=== PATIENT | male | born 1940 | race Caucasian/White ===

== ENCOUNTER → 2017-10-02 | Outpatient (CLI) | payer MEDICARE ==
[~2017-10-02] MED LIST: AMLO10TA2 PO; ESOM20CA31 PO; LISI40TA4 PO; TAMS0.4C32 PO; metoprolol er PO
== END | disposition home or self-care (01) ==
LOC: SHCH 10:10
PROVIDERS: ATTEND Internal Medicine Cardiovascular Disease
DX: I25.10 Atherosclerotic heart disease of native coronary artery without angina pectoris (principal)
CPT/HCPCS: 93306

== ENCOUNTER → 2017-10-18 | Outpatient (CLI) | payer MEDICARE | END | disposition home or self-care (01) | LOC: SHCH 10:40 | PROVIDERS: ATTEND Internal Medicine Cardiovascular Disease | DX: I73.9 Peripheral vascular disease, unspecified (principal) | CPT/HCPCS: 93925 ==

== ENCOUNTER → 2017-11-23 | Outpatient (CLI) | payer MEDICARE | END | disposition home or self-care (01) | LOC: SHCH 08:59 | PROVIDERS: ATTEND Internal Medicine Cardiovascular Disease | DX: I10 Essential (primary) hypertension (principal); I71.4 Abdominal aortic aneurysm, without rupture; I70.1 Atherosclerosis of renal artery; N28.1 Cyst of kidney, acquired | CPT/HCPCS: 93978 ==

== ENCOUNTER → 2017-12-04 | Outpatient (CLI) | payer MEDICARE ==
[~2017-12-04] MED LIST changes: +REGADENOSON 0.4 MG/5 ML PF SYG IVP SCH
== END | disposition home or self-care (01) ==
LOC: SHCH 09:04
PROVIDERS: ATTEND Internal Medicine Cardiovascular Disease
DX: R07.9 Chest pain, unspecified (principal); R06.02 Shortness of breath
CPT/HCPCS: 78452; 93017; 96374; A9500 ×2; J2785

== ENCOUNTER → 2018-12-25 | Outpatient (CLI) | payer MEDICARE ==
[~2018-12-25] MED LIST changes: -AMLO10TA2 PO; +AMLO10TA7 PO; -REGADENOSON 0.4 MG/5 ML PF SYG IVP SCH
== END | disposition home or self-care (01) ==
LOC: SHCH 11:02
PROVIDERS: ATTEND Internal Medicine Cardiovascular Disease
DX: I11.9 Hypertensive heart disease without heart failure (principal)
CPT/HCPCS: 93306

== ENCOUNTER 2022-02-20 10:21 | Inpatient (IN) | payer MEDICARE ==
[~2022-02-20] VITALS: Ht 167.6 cm; Wt 81.0 kg
[~2022-02-20 10:21] MED LIST changes: +AMLO-258 PO; -AMLO10TA7 PO; -LISI40TA4 PO; +LISI40TA9 PO
[2022-02-20 10:47] LABS: BASOPHILS % (AUTO) 0.6 % (0.0-5.0); EOSINOPHILS % (AUTO) 3.9 % (0.0-8.0); HEMATOCRIT 43.9 % (42-54); MEAN CORPUSCULAR HEMOGLOBIN 28.7 pg (27.0-33.0); MEAN CORPUSCULAR VOLUME 86.8 fL (79-99); MONOCYTES % (AUTO) 8.7 % (3.0-13.0); NEUTROPHILS % (AUTO) 67.4 % (40.0-77.0); PLATELET COUNT (AUTO) 203 K/uL (130-400); RED BLOOD CELL COUNT(AUTO) 5.06 MIL/uL (4.50-6.20); RED CELL DISTRIBUTION WIDTH 15.9 % (11.0-15.5)
[2022-02-20 10:56] LABS: POTASSIUM 4.5 mmol/L (3.5-5.1)
[2022-02-20 10:57] LABS: INR 0.95 (0.85-1.15); PROTHROMBIN TIME 10.4 SEC (9.6-11.6)
[2022-02-20 10:58] LABS: PARTIAL THROMBOPLASTIN TIME 27.9 SEC (26.3-35.5)
[2022-02-20] MEDS ORDERED: 0.9%NACL 1000ML 1,000 ML IV SCH (11:00)
[2022-02-20 11:01] LABS: ALBUMIN 3.6 g/dL (3.5-5.0); TOTAL PROTEIN, SERUM 7.1 g/dL (6.0-8.3)
[2022-02-20] MEDS ORDERED: AMIODARONE 150MG VIAL ONE (11:44)
[2022-02-20] MEDS ORDERED: AMIODARONE 150MG VIAL 150 MG in DEXTROSE 5%-WATER 100 ML IV SCH ×2 (12:00→14:30)
[2022-02-20] MEDS ORDERED: ONDANSETRON 4MG INJ IV PRN (13:00)
[2022-02-20] MEDS ORDERED: MAG/ALUM/SIMETH 30 ML UDCUP PO PRN (13:00)
[2022-02-20 14:30] LABS: APPEARANCE,URINE Clear (CLEAR); BILIRUBIN,URINE Negative (NEGATIVE); COLOR,URINE Yellow (YELLOW); GLUCOSE, URINE (UA) Negative (NEGATIVE); KETONES,URINE Negative (NEGATIVE); LEUKOCYTE ESTERASE ,URINE Negative (NEGATIVE); NITRATE,URINE Negative (NEGATIVE); OCCULT BLOOD,URINE Negative (NEGATIVE); PROTEIN,URINE Negative (NEGATIVE); UROBILINOGEN,URINE 0.2 mg/dL (0.2-1.0)
[2022-02-20] MEDS ORDERED: AMIODARONE 900MG VIAL 360 MG in DEXTROSE 5%-WATER 200 ML IV SCH (15:00)
[2022-02-20] MEDS ORDERED: AMIODARONE 900MG VIAL 540 MG in DEXTROSE 5%-WATER 300 ML IV SCH (15:00)
[2022-02-20] MEDS: AMIODARONE 900MG VIAL 360 MG in DEXTROSE 5%-WATER 200 ML IV SCH (15:29)
[2022-02-20] MEDS ORDERED: APIX5TAB PO (16:16)
[2022-02-20] MEDS ORDERED: AEC81 PO (16:16)
[2022-02-20] MEDS ORDERED: MULT-1203 PO (16:16)
[2022-02-20] MEDS ORDERED: ATOR40TA71 PO (16:16)
[2022-02-20 19:21] VITALS: BP 165/87
[2022-02-20] MEDS: METOPROLOL TARTRATE 25 MG TAB PO SCH (21:03)
[2022-02-20] MEDS: FAMOTIDINE 20MG TAB PO SCH (21:03)
[2022-02-20] MEDS: AMIODARONE 900MG VIAL 540 MG in DEXTROSE 5%-WATER 300 ML IV SCH (21:05)
[2022-02-20] MEDS: ACETAMINOPHEN 325 MG TAB PO PRN (21:08)
[2022-02-20] MEDS ORDERED: MORPHINE 2 MG SYG IVP PRN (22:30)
[2022-02-20] MEDS: NITROGLYCERIN 1GM OINT 1 INCH/1GM TD SCH (22:30)
[2022-02-20] MEDS ORDERED: NITROGLYCERIN 1GM OINT 1 INCH/1GM TD ONE (22:30)
[2022-02-20] MEDS ORDERED: PHARMACY COMMUNICATION MISC SCH (23:30)
[2022-02-21] VITALS (7 sets, daily range): BP systolic 137–166; BP diastolic 64–76
[2022-02-21] MEDS ORDERED: HEPARIN 5,000 UNIT VIAL IV ONE (01:00)
[2022-02-21] MEDS ORDERED: HEPARIN 5,000 UNIT VIAL SQ PRN (01:00)
[2022-02-21] MEDS: HEPARIN 25,000 UNITS/250ML D5W 250 ML IV SCH ×2 (01:39→19:17)
[2022-02-21] MEDS: NITROGLYCERIN 1GM OINT 1 INCH/1GM TD SCH ×3 (06:26→22:30)
[2022-02-21 08:14] LABS: BASOPHILS % (AUTO) 0.5 % (0.0-5.0); EOSINOPHILS % (AUTO) 1.6 % (0.0-8.0); HEMATOCRIT 43.7 % (42-54); LYMPHOCYTES % (AUTO) 11.8 % (21.0-51.0); MEAN CORPUSCULAR HGB CONC 33.4 g/dL (32.0-36.0); MEAN CORPUSCULAR VOLUME 86.9 fL (79-99); MONOCYTES % (AUTO) 11.7 % (3.0-13.0); NEUTROPHILS % (AUTO) 73.8 % (40.0-77.0); PLATELET COUNT (AUTO) 181 K/uL (130-400); RED BLOOD CELL COUNT(AUTO) 5.03 MIL/uL (4.50-6.20); RED CELL DISTRIBUTION WIDTH 16.2 % (11.0-15.5); WHITE BLOOD COUNT (AUTO) 12.7 K/uL (4.8-10.8)
[2022-02-21] MEDS: LISINOPRIL 40 MG TABLET PO SCH (08:38)
[2022-02-21] MEDS: METOPROLOL TARTRATE 25 MG TAB PO SCH ×2 (08:38→20:34)
[2022-02-21] MEDS: TAMSULOSIN HCL 0.4 MG CAP.ER.24H PO SCH (08:38)
[2022-02-21] MEDS: MULTIVITAMIN TABLET PO SCH (08:38)
[2022-02-21] MEDS: FAMOTIDINE 20MG TAB PO SCH ×2 (08:39→20:33)
[2022-02-21 08:47] LABS: ALBUMIN 3.1 g/dL (3.5-5.0); TOTAL PROTEIN, SERUM 6.4 g/dL (6.0-8.3)
[2022-02-21] MEDS ORDERED: ENOXAPARIN SODIUM 30 MG/0.3 ML SQ SCH (09:00)
[2022-02-21 09:10] LABS: POTASSIUM 4.3 mmol/L (3.5-5.1)
[2022-02-21] MEDS: ACETAMINOPHEN 325 MG TAB PO PRN (09:51)
[2022-02-21] MEDS: ATORVASTATIN 40 MG TABLET PO SCH (20:33)
[2022-02-21] MEDS: ASPIRIN 81 MG EC TAB PO SCH (20:34)
[2022-02-22] VITALS (8 sets, daily range): BP systolic 115–166; BP diastolic 64–85
[2022-02-22 02:19] LABS: MEAN CORPUSCULAR HGB CONC 33.5 g/dL (32.0-36.0); MEAN CORPUSCULAR VOLUME 86.4 fL (79-99); RED BLOOD CELL COUNT(AUTO) 4.28 MIL/uL (4.50-6.20); RED CELL DISTRIBUTION WIDTH 15.9 % (11.0-15.5); WHITE BLOOD COUNT (AUTO) 9.2 K/uL (4.8-10.8)
[2022-02-22 02:34] LABS: POTASSIUM 4.2 mmol/L (3.5-5.1)
[2022-02-22] MEDS: NITROGLYCERIN 1GM OINT 1 INCH/1GM TD SCH ×3 (06:09→22:05)
[2022-02-22] MEDS: METOPROLOL TARTRATE 25 MG TAB PO SCH ×2 (08:29→20:37)
[2022-02-22] MEDS: TAMSULOSIN HCL 0.4 MG CAP.ER.24H PO SCH (08:32)
[2022-02-22] MEDS: MULTIVITAMIN TABLET PO SCH (08:32)
[2022-02-22] MEDS: LISINOPRIL 40 MG TABLET PO SCH (08:33)
[2022-02-22] MEDS: FAMOTIDINE 20MG TAB PO SCH ×2 (08:33→20:37)
[2022-02-22] MEDS: AMIODARONE 900MG VIAL 540 MG in DEXTROSE 5%-WATER 300 ML IV SCH (08:48)
[2022-02-22] MEDS: AMIODARONE 900MG VIAL 360 MG in DEXTROSE 5%-WATER 200 ML IV SCH (08:48)
[2022-02-22] MEDS: AMIODARONE 200 MG TABLET PO SCH (10:04)
[2022-02-22] MEDS ORDERED: REGADENOSON 0.4 MG/5 ML PF SYG IVP SCH (10:30)
[2022-02-22] MEDS: ASPIRIN 81 MG EC TAB PO SCH (20:37)
[2022-02-22] MEDS: ATORVASTATIN 40 MG TABLET PO SCH (20:37)
[2022-02-23 00:12] VITALS: BP 143/74
[2022-02-23 03:12] VITALS: BP 158/73
[2022-02-23] MEDS: HEPARIN 25,000 UNITS/250ML D5W 250 ML IV SCH (04:49)
[2022-02-23] MEDS: NITROGLYCERIN 1GM OINT 1 INCH/1GM TD SCH (06:14)
[2022-02-23 07:00] VITALS: BP 179/80
[2022-02-23] MEDS ORDERED: AMIO200T44 PO (07:50)
[2022-02-23] MEDS ORDERED: METO25 PO (07:50)
[2022-02-23 08:21] VITALS: BP 179/80
[2022-02-23] MEDS: FAMOTIDINE 20MG TAB PO SCH (08:24)
[2022-02-23] MEDS: MULTIVITAMIN TABLET PO SCH (08:24)
[2022-02-23] MEDS: AMIODARONE 200 MG TABLET PO SCH (08:24)
[2022-02-23] MEDS: LISINOPRIL 40 MG TABLET PO SCH (08:24)
[2022-02-23] MEDS: TAMSULOSIN HCL 0.4 MG CAP.ER.24H PO SCH (08:24)
[2022-02-23] MEDS: METOPROLOL TARTRATE 25 MG TAB PO SCH (08:25)
== END 2022-02-23 10:15 | disposition home or self-care (01) | DRG 310 ==
LOC: EDH 10:21 → EDHIP 12:54 → OBSVTOIN 12:54 → 2DH 20:07
PROVIDERS: ADMIT Hospitalist; ATTEND Hospitalist
PROC: 4A02XM4 Measurement of Cardiac Total Activity, External Approach (ICD-10-PCS; principal; 2022-02-21)
PROC: 3E073KZ Introduction of Other Diagnostic Substance into Coronary Artery, Percutaneous Approach (ICD-10-PCS; 2022-02-21)
DX: I48.91 Unspecified atrial fibrillation (principal); Z79.01 Long term (current) use of anticoagulants; I48.92 Unspecified atrial flutter; I10 Essential (primary) hypertension; E78.5 Hyperlipidemia, unspecified; K21.9 Gastro-esophageal reflux disease without esophagitis; Z82.0 Family history of epilepsy and other diseases of the nervous system; Z82.5 Family history of asthma and other chronic lower respiratory diseases; Z82.49 Family history of ischemic heart disease and other diseases of the circulatory system; Z82.3 Family history of stroke; Z83.3 Family history of diabetes mellitus; Z90.49 Acquired absence of other specified parts of digestive tract; Z95.5 Presence of coronary angioplasty implant and graft; I44.7 Left bundle-branch block, unspecified; I25.10 Atherosclerotic heart disease of native coronary artery without angina pectoris; E78.00 Pure hypercholesterolemia, unspecified; R00.0 Tachycardia, unspecified; R77.8 Other specified abnormalities of plasma proteins
CPT/HCPCS: 36415; 71045; 78452; 80048; 80053; 81003; 84484; 85025; 85027; 85610; 85730; 93005; 93017; 96374; 99291; A9500; G0378; J0282; J1644; J2785; J7030; J7060

== ENCOUNTER → 2022-04-27 | Outpatient (CLI) | payer MEDICARE ==
[~2022-04-27] MED LIST changes: +AEC81 PO; +AMIO200T44 PO; -AMLO-258 PO; +APIX5TAB PO; +ATOR40TA71 PO; +METO25 PO; +MULT-1203 PO; -metoprolol er PO
== END | disposition home or self-care (01) ==
LOC: SHCH 14:00
PROVIDERS: ATTEND Internal Medicine Cardiovascular Disease
DX: I48.0 Paroxysmal atrial fibrillation (principal)
CPT/HCPCS: 93306

== ENCOUNTER → 2022-06-13 | Outpatient (CLI) | payer MEDICARE ==
[~2022-06-13] MED LIST changes: +IOHEXOL 350 MG/ML 100ML INFUS..BTL IV ONE
== END | disposition home or self-care (01) ==
LOC: RAH 10:39
PROVIDERS: ATTEND Internal Medicine Cardiovascular Disease
DX: I48.0 Paroxysmal atrial fibrillation (principal); I51.7 Cardiomegaly
CPT/HCPCS: 71275; Q9967

== ENCOUNTER 2022-06-27 05:50 | Day surgery (SDC) | payer MEDICARE ==
[2022-06-21 11:38] LABS: BASOPHILS % (AUTO) 0.6 % (0.0-5.0); EOSINOPHILS % (AUTO) 4.7 % (0.0-8.0); HEMATOCRIT 44.8 % (42-54); LYMPHOCYTES % (AUTO) 26.5 % (21.0-51.0); MEAN CORPUSCULAR HEMOGLOBIN 28.6 pg (27.0-33.0); MEAN CORPUSCULAR HGB CONC 32.6 g/dL (32.0-36.0); MEAN CORPUSCULAR VOLUME 87.7 fL (79-99); MONOCYTES % (AUTO) 9.2 % (3.0-13.0); NEUTROPHILS % (AUTO) 58.7 % (40.0-77.0); PLATELET COUNT (AUTO) 203 K/uL (130-400); RED BLOOD CELL COUNT(AUTO) 5.11 MIL/uL (4.50-6.20); WHITE BLOOD COUNT (AUTO) 6.6 K/uL (4.8-10.8)
[2022-06-21 11:48] LABS: CREATININE 0.9 mg/dL (0.5-1.5); POTASSIUM 4.3 mmol/L (3.5-5.1)
[2022-06-21 11:51] LABS: INR 0.99 (0.85-1.15); PROTHROMBIN TIME 10.8 SEC (9.6-11.6)
[2022-06-21 11:52] LABS: PARTIAL THROMBOPLASTIN TIME 30.8 SEC (26.3-35.5)
[2022-06-26 09:25] VITALS: BP 198/68
[2022-06-27] VITALS (13 sets, daily range): BP systolic 147–165; BP diastolic 52–62
[~2022-06-27] VITALS: Ht 167.6 cm; Wt 84.6 kg
[~2022-06-27 05:50] MED LIST changes: -AMIO200T44 PO; +CLON0.1T PO; -IOHEXOL 350 MG/ML 100ML INFUS..BTL IV ONE; -METO25 PO; -MULT-1203 PO; +MULT-1258 PO; +VITAMIN B12 PO
[2022-06-27] MEDS ORDERED: 0.9%NACL 1000ML 1,000 ML IV ONE (06:18)
[2022-06-27] MEDS ORDERED: HEPARIN 10,000 UNIT/10ML (1,000 UNIT/ML) VIAL ONE (07:17)
[2022-06-27] MEDS ORDERED: LIDOCAINE HCL 1% 20 ML VIAL ONE ×2 (07:17→07:29)
[2022-06-27] MEDS ORDERED: PHENYLEPHRINE HCL 10 MG/ML 1ML VIAL IV ONE (08:19)
[2022-06-27] MEDS ORDERED: GLYCOPYRROLATE 1 MG/5 ML SYRINGE ONE (08:25)
[2022-06-27] MEDS ORDERED: NEOSTIGMINE 5MG/5ML SYR IV ONE (08:49)
[2022-06-27] MEDS ORDERED: SUGAMMADEX SODIUM 200 MG/2 ML VIAL IV ONE (08:52)
[2022-06-27] MEDS ORDERED: HYDRALAZINE 20MG/ML VIAL ONE (08:58)
== END 2022-06-27 10:35 | disposition home or self-care (01) ==
LOC: DAH 05:50
PROVIDERS: ATTEND Internal Medicine Cardiovascular Disease
DX: I48.0 Paroxysmal atrial fibrillation (principal); Z20.822 Contact with and (suspected) exposure to COVID-19; I48.4 Atypical atrial flutter; I10 Essential (primary) hypertension; I25.10 Atherosclerotic heart disease of native coronary artery without angina pectoris; Z79.01 Long term (current) use of anticoagulants; Z79.899 Other long term (current) drug therapy; Z79.82 Long term (current) use of aspirin; Z98.890 Other specified postprocedural states; Z88.2 Allergy status to sulfonamides
CPT/HCPCS: 80048; 85025; 85610; 85730; 87426; 36415; 93005 ×2; 93656; 92960; A4344; C1894 ×3; C1893; A4215 ×2; C1731; A4649 ×2; J3490; J2710; J7030; J0360; J1644 ×2; J2370; A4222; A4221; A4663; A4216; A4606; A4223 ×3

== ENCOUNTER 2022-11-07 07:19 | Observation (INO) | payer MEDICARE ==
[2022-11-03 14:05] VITALS: BP 154/91
[2022-11-03 14:15] LABS: BASOPHILS % (AUTO) 0.5 % (0.0-5.0); EOSINOPHILS % (AUTO) 5.1 % (0.0-8.0); HEMATOCRIT 44.2 % (42-54); LYMPHOCYTES % (AUTO) 28.7 % (21.0-51.0); MEAN CORPUSCULAR HEMOGLOBIN 27.9 pg (27.0-33.0); MEAN CORPUSCULAR HGB CONC 32.1 g/dL (32.0-36.0); MEAN CORPUSCULAR VOLUME 86.8 fL (79-99); MONOCYTES % (AUTO) 10.7 % (3.0-13.0); NEUTROPHILS % (AUTO) 54.3 % (40.0-77.0); PLATELET COUNT (AUTO) 278 K/uL (130-400); RED BLOOD CELL COUNT(AUTO) 5.09 MIL/uL (4.50-6.20); RED CELL DISTRIBUTION WIDTH 15.3 % (11.0-15.5); WHITE BLOOD COUNT (AUTO) 6.1 K/uL (4.8-10.8)
[2022-11-03 14:30] LABS: INR 0.98 (0.85-1.15); PROTHROMBIN TIME 10.7 SEC (9.6-11.6)
[2022-11-07] VITALS (17 sets, daily range): BP systolic 142–162; BP diastolic 63–104
[~2022-11-07] VITALS: Ht 167.6 cm; Wt 85.4 kg
[~2022-11-07 07:19] MED LIST changes: +ACET-2893 PO; +CYCL5TAB PO; +METO-391 PO
[2022-11-07] MEDS ORDERED: 0.9%NACL 1000ML 1,000 ML IV ONE (07:37)
[2022-11-07] MEDS ORDERED: LIDOCAINE HCL 1% MDV 50ML VIAL ONE (10:28)
[2022-11-07] MEDS ORDERED: HEPARIN 10,000 UNIT/10ML (1,000 UNIT/ML) VIAL ONE ×3 (10:31→17:06)
[2022-11-07] MEDS ORDERED: METOPROLOL TARTRATE 1 MG/ML 5ML VIAL IV ONE (11:32)
[2022-11-07] MEDS ORDERED: BENZOCAINE 20% 57 GM SPRAY ONE (12:13)
[2022-11-07] MEDS ORDERED: ROCURONIUM 10MG/1ML SYR 10 MG/ML ML ONE (13:31)
[2022-11-07] MEDS ORDERED: NITROGLYCERIN 50MG VIAL ONE (15:05)
[2022-11-07] MEDS ORDERED: ATROPINE 1MG SYG IVP ONE (15:12)
[2022-11-07 16:18] LABS: ABG BASE EXCESS -0.7 mmol/L (-2.0-3.0); ABG OXYGEN SATURATION 99.3 % (95.0-99.0); ABG PCO2 45 mmHg (35-48)
[2022-11-07] MEDS ORDERED: PHENYLEPHRINE HCL 10 MG/ML 5ML VIAL IV ONE (16:30)
[2022-11-07] MEDS ORDERED: PHENYLEPHRINE HCL 10 MG/ML 1ML VIAL IV ONE (16:32)
[2022-11-07] MEDS ORDERED: PROTAMINE SULFATE 10 MG/ML 25ML VIAL IV ONE (17:29)
[2022-11-07] MEDS ORDERED: CYCLOBENZAPRINE HCL 10 MG TABLET PO PRN (18:00)
[2022-11-07] MEDS ORDERED: PANTOPRAZOLE 40 MG TAB DR PO SCH (18:00)
[2022-11-07] MEDS ORDERED: CLONIDINE HCL 0.1 MG TABLET PO PRN (18:00)
[2022-11-07] MEDS ORDERED: ATORVASTATIN 40 MG TABLET PO SCH (21:00)
[2022-11-07] MEDS ORDERED: ASPIRIN 81 MG EC TAB PO SCH (21:00)
[2022-11-07] MEDS ORDERED: ENOXAPARIN SODIUM 80 MG/0.8 ML SQ ONE (22:08)
[2022-11-07] MEDS: ACETAMINOPHEN 325 MG TAB PO SCH (22:10)
[2022-11-07] MEDS: SUCRALFATE 1 GM TABLET PO SCH ×2 (22:11→22:33)
[2022-11-08 00:12] VITALS: BP 170/87
[2022-11-08] MEDS ORDERED: ENOXAPARIN SODIUM 80 MG/0.8 ML SQ ONE (01:00)
[2022-11-08 03:12] VITALS: BP 116/52
[2022-11-08] MEDS: SUCRALFATE 1 GM TABLET PO SCH ×2 (06:07→09:29)
[2022-11-08 08:00] VITALS: BP 136/73
[2022-11-08] MEDS ORDERED: LISINOPRIL 40 MG TABLET PO SCH (09:00)
[2022-11-08] MEDS ORDERED: PANTOPRAZOLE 40 MG TAB DR PO SCH (09:00)
[2022-11-08] MEDS ORDERED: NON-FORMULARY MEDICATION 1 EACH (Esomeprazole Magnesium (Nexium) 20 MG) PO SCH (09:00)
[2022-11-08] MEDS ORDERED: CYANOCOBALAMIN (VITAMIN B-12) 1,000 MCG TABLET PO SCH (09:00)
[2022-11-08] MEDS ORDERED: MULTIVITAMIN WITH MINERALS TABLET PO SCH (09:00)
[2022-11-08] MEDS: ACETAMINOPHEN 325 MG TAB PO SCH (09:00)
[2022-11-08] MEDS ORDERED: APIXABAN 5 MG TABLET PO SCH (09:00)
[2022-11-08] MEDS ORDERED: TAMSULOSIN HCL 0.4 MG CAP.ER.24H PO SCH (09:00)
[2022-11-08] MEDS ORDERED: SUCRALFATE 1 GM TABLET PO SCH (10:35)
[2022-11-08] MEDS ORDERED: SUCR1ORA15 PO (10:42)
[2022-11-08 12:50] VITALS: BP 126/69
[2022-11-08] MEDS ORDERED: METOPROLOL SUCCINATE 50 MG TAB.SR.24H PO SCH (21:00)
[2022-11-10] MEDS ORDERED: HYDR-4060 PO (10:44)
[2022-11-11] MEDS ORDERED: AMIO200T68 PO (07:49)
== END 2022-11-08 13:35 | disposition home or self-care (01) ==
LOC: DAH 07:19 → DAHIP 07:20 → 2DH 20:06
PROVIDERS: ADMIT Internal Medicine Cardiovascular Disease; ATTEND Internal Medicine Cardiovascular Disease
DX: I48.91 Unspecified atrial fibrillation (principal); Z20.822 Contact with and (suspected) exposure to COVID-19; I25.10 Atherosclerotic heart disease of native coronary artery without angina pectoris; E78.5 Hyperlipidemia, unspecified; N40.0 Benign prostatic hyperplasia without lower urinary tract symptoms; E66.9 Obesity, unspecified; M10.9 Gout, unspecified; Z79.899 Other long term (current) drug therapy
CPT/HCPCS: 80048; 85025; 85610; 85730; 87426; 36415; 93005 ×3; 93622; 93655; 93656; 96372; 82435; 82947; 84484; 84132; 84295; 82803; 85347 ×9; 85018; 83605; 93308; 93312; C1894 ×3; A4344; C1893; A4215 ×2; C1731; A4649 ×2; C1732; C1730; G0378 ×20; J3490 ×3; J7030; J2720; J1644 ×5; J1650; J2370 ×2; A4223; A4222; A4221; A4663; 93657; J0461

== ENCOUNTER 2022-11-14 09:11 | Emergency (ER) | payer MEDICARE ==
[~2022-11-14] VITALS: Ht 167.6 cm; Wt 81.6 kg
[~2022-11-14 09:11] MED LIST changes: -ACET-2893 PO; +AMIO200T68 PO; -CLON0.1T PO; -CYCL5TAB PO; +SUCR1ORA15 PO
[2022-11-14] MEDS ORDERED: DEXAMETHASONE SOD PHOSPHATE 4 MG/ML 1ML VIAL IV ONE (09:30)
[2022-11-14 09:36] LABS: BASOPHILS % (AUTO) 0.3 % (0.0-5.0); EOSINOPHILS % (AUTO) 1.3 % (0.0-8.0); HEMATOCRIT 33.4 % (42-54); LYMPHOCYTES % (AUTO) 11.4 % (21.0-51.0); MEAN CORPUSCULAR HEMOGLOBIN 27.7 pg (27.0-33.0); MEAN CORPUSCULAR HGB CONC 32.6 g/dL (32.0-36.0); MONOCYTES % (AUTO) 10.9 % (3.0-13.0); NEUTROPHILS % (AUTO) 75.5 % (40.0-77.0); PLATELET COUNT (AUTO) 309 K/uL (130-400); RED BLOOD CELL COUNT(AUTO) 3.93 MIL/uL (4.50-6.20); RED CELL DISTRIBUTION WIDTH 15.6 % (11.0-15.5); WHITE BLOOD COUNT (AUTO) 11.8 K/uL (4.8-10.8)
[2022-11-14 09:44] LABS: POTASSIUM 4.4 mmol/L (3.5-5.1)
[2022-11-14 09:49] LABS: ALBUMIN 2.8 g/dL (3.5-5.0); TOTAL PROTEIN, SERUM 7.3 g/dL (6.0-8.3)
[2022-11-14 10:01] LABS: B-TYPE NATRIURETIC PEPTIDE 299 pg/mL (0-100)
[2022-11-14] MEDS ORDERED: 0.9% NACL 500ML IV.SOLN 500 ML IV ONE (10:30)
[2022-11-14] MEDS ORDERED: FENTANYL CITRATE PF 50 MCG/1 ML 2ML VIAL IVP ONE (10:30)
[2022-11-14] MEDS ORDERED: MIDAZOLAM HCL 1 MG/ML 2ML VIAL IVP ONE (10:30)
[2022-11-14 13:15] VITALS: BP 140/80
[2022-11-14] MEDS ORDERED: METH4TAB3 PO (14:01)
== END 2022-11-14 14:06 | disposition home or self-care (01) ==
LOC: EDH 09:11
DX: I48.92 Unspecified atrial flutter (principal); I10 Essential (primary) hypertension; E78.00 Pure hypercholesterolemia, unspecified; Z88.2 Allergy status to sulfonamides; Z79.899 Other long term (current) drug therapy; Z90.89 Acquired absence of other organs
CPT/HCPCS: 99291; 92960; 96374; 71045; 96375; 83735; 84484 ×2; 80053; 83880; 85025; 36415; 99152; 93005 ×3; J1100; J7040; J3010; J2250

== ENCOUNTER → 2023-01-25 | Outpatient (CLI) | payer MEDICARE ==
[~2023-01-25] MED LIST changes: +METH4TAB3 PO
[2023-01-25 16:19] LABS: BASOPHILS % (AUTO) 0.6 % (0.0-5.0); EOSINOPHILS % (AUTO) 4.1 % (0.0-8.0); LYMPHOCYTES % (AUTO) 23.6 % (21.0-51.0); MEAN CORPUSCULAR HEMOGLOBIN 27.5 pg (27.0-33.0); MONOCYTES % (AUTO) 10.8 % (3.0-13.0); NEUTROPHILS % (AUTO) 60.4 % (40.0-77.0); PLATELET COUNT (AUTO) 220 K/uL (130-400); RED BLOOD CELL COUNT(AUTO) 4.77 MIL/uL (4.50-6.20); RED CELL DISTRIBUTION WIDTH 16.9 % (11.0-15.5); WHITE BLOOD COUNT (AUTO) 6.6 K/uL (4.8-10.8)
[2023-01-25 16:44] LABS: ALBUMIN 3.6 g/dL (3.5-5.0); THYROID STIMULATING HORMONE 1.64 uIU/mL (0.36-3.74); TOTAL PROTEIN, SERUM 6.8 g/dL (6.0-8.3)
== END | disposition home or self-care (01) ==
LOC: LAB 15:13
PROVIDERS: ATTEND Internal Medicine Cardiovascular Disease
DX: I48.0 Paroxysmal atrial fibrillation (principal)
CPT/HCPCS: 36415; 80053; 84443; 85025

== ENCOUNTER → 2023-06-14 | Outpatient (CLI) | payer MEDICARE ==
[2023-06-14 13:00] LABS: ALBUMIN 3.6 g/dL (3.5-5.0); BILIRUBIN,TOTAL 0.6 mg/dL (0.2-1.0); CREATININE 0.9 mg/dL (0.5-1.5); POTASSIUM 4.5 mmol/L (3.5-5.1); TOTAL PROTEIN, SERUM 6.8 g/dL (6.0-8.3)
== END | disposition home or self-care (01) ==
LOC: LAB 08:06
PROVIDERS: ATTEND Internal Medicine Cardiovascular Disease
DX: E78.5 Hyperlipidemia, unspecified (principal)
CPT/HCPCS: 36415; 80053; 80061

== ENCOUNTER → 2024-01-08 | Outpatient (CLI) | payer MEDICARE ==
[~2024-01-08] VITALS: Ht 167.6 cm; Wt 87.2 kg
[~2024-01-08] MED LIST changes: +ALLO100T PO; +AMLO-257 PO; +CLON0.1T PO; +DRON400T7 PO; +ESOM20CA51 PO; +METO-408 PO
[2024-01-08 11:03] LABS: BASOPHILS # (AUTO) 0.03 K/uL (0.00-0.20); BASOPHILS % (AUTO) 0.4 % (0.0-5.0); EOSINOPHILS % (AUTO) 5.9 % (0.0-8.0); HEMATOCRIT 47.6 % (42-54); IMMATURE GRANULOCYTE ABSOLUTE 0.03 K/uL (0-1); LYMPHOCYTES # (AUTO) 1.6 K/uL (1.0-4.8); LYMPHOCYTES % (AUTO) 23.3 % (21.0-51.0); MEAN CORPUSCULAR HEMOGLOBIN 29.3 pg (27.0-33.0); MEAN CORPUSCULAR HGB CONC 32.8 g/dL (32.0-36.0); MEAN CORPUSCULAR VOLUME 89.3 fL (79-99); MONOCYTES # (AUTO) 0.8 K/uL (0.1-1.0); MONOCYTES % (AUTO) 11.4 % (3.0-13.0); NEUTROPHILS # (AUTO) 3.9 K/uL (1.8-7.7); NEUTROPHILS % (AUTO) 58.6 % (40.0-77.0); PLATELET COUNT (AUTO) 210 K/uL (130-400); RED BLOOD CELL COUNT(AUTO) 5.33 MIL/uL (4.50-6.20); RED CELL DISTRIBUTION WIDTH 16.3 % (11.0-15.5); WHITE BLOOD COUNT (AUTO) 6.7 K/uL (4.8-10.8)
[2024-01-08 11:05] LABS: CREATININE 0.9 mg/dL (0.5-1.3); POTASSIUM 4.3 mmol/L (3.5-5.1)
[2024-01-08 11:10] LABS: INR <= 0.93 (0.85-1.15)
[2024-01-08 11:11] LABS: PARTIAL THROMBOPLASTIN TIME 30.1 SEC (26.3-35.5)
[2024-01-08 11:23] VITALS: BP 157/72; PULSE 68; RESP 19
== END | disposition home or self-care (01) ==
LOC: EDSTATUS 10:00 → DAH 10:00
PROVIDERS: ATTEND Internal Medicine Cardiovascular Disease
DX: Z01.818 Encounter for other preprocedural examination (principal); I48.4 Atypical atrial flutter; Z79.01 Long term (current) use of anticoagulants; Z88.2 Allergy status to sulfonamides
CPT/HCPCS: 36415; 80048; 85025; 85610; 85730; 93005

== ENCOUNTER 2024-02-21 05:57 | Observation (INO) | payer MEDICARE ==
[2024-02-19 12:29] VITALS: BP 180/62; PULSE 52; RESP 16
[2024-02-19 12:37] LABS: BASOPHILS # (AUTO) 0.04 K/uL (0.00-0.20); BASOPHILS % (AUTO) 0.6 % (0.0-5.0); EOSINOPHILS # (AUTO) 0.44 K/uL (0.00-0.70); EOSINOPHILS % (AUTO) 6.7 % (0.0-8.0); HEMATOCRIT 44.8 % (42-54); IMMATURE GRANULOCYTE ABSOLUTE 0.04 K/uL (0-1); LYMPHOCYTES % (AUTO) 29.7 % (21.0-51.0); MEAN CORPUSCULAR HEMOGLOBIN 28.7 pg (27.0-33.0); MEAN CORPUSCULAR HGB CONC 33.3 g/dL (32.0-36.0); MEAN CORPUSCULAR VOLUME 86.2 fL (79-99); MONOCYTES # (AUTO) 0.7 K/uL (0.1-1.0); MONOCYTES % (AUTO) 10.5 % (3.0-13.0); NEUTROPHILS # (AUTO) 3.4 K/uL (1.8-7.7); NEUTROPHILS % (AUTO) 51.9 % (40.0-77.0); PLATELET COUNT (AUTO) 222 K/uL (130-400); RED CELL DISTRIBUTION WIDTH 15.8 % (11.0-15.5); WHITE BLOOD COUNT (AUTO) 6.6 K/uL (4.8-10.8)
[2024-02-19 12:49] LABS: INR 1.12 (0.85-1.15)
[2024-02-19 12:50] LABS: CREATININE 0.9 mg/dL (0.5-1.3); PARTIAL THROMBOPLASTIN TIME 29.3 SEC (26.3-35.5); POTASSIUM 4.6 mmol/L (3.5-5.1)
[~2024-02-21] VITALS: Ht 170.2 cm; Wt 88.0 kg
[2024-02-21] VITALS (23 sets, daily range): BP systolic 124–163; BP diastolic 57–77; PULSE 54–75; RESP 13–18; O2SAT 96–98
[~2024-02-21 05:57] MED LIST changes: -ALLO100T PO; -AMIO200T68 PO; -ATOR40TA71 PO; -ESOM20CA31 PO; -METH4TAB3 PO; -METO-391 PO; -SUCR1ORA15 PO
[2024-02-21] MEDS ORDERED: ROCURONIUM BROMIDE 10MG/1ML 5ML VL ONE (06:49)
[2024-02-21] MEDS ORDERED: MIDAZOLAM HCL 1 MG/ML 2ML VIAL ONE (06:49)
[2024-02-21] MEDS ORDERED: FENTANYL CITRATE PF 50 MCG/1 ML 2ML VIAL ONE ×2 (06:49→07:03)
[2024-02-21] MEDS ORDERED: PROPOFOL 10 MG/ML 20ML VIAL IV ONE (06:49)
[2024-02-21] MEDS ORDERED: ONDANSETRON 4MG INJ ONE (07:03)
[2024-02-21] MEDS: 0.9%NACL 1000ML 1,000 ML IV ONE (07:09)
[2024-02-21] MEDS ORDERED: LIDOCAINE HCL 400MG/20ML VIAL ONE (07:47)
[2024-02-21] MEDS ORDERED: HEPARIN 10,000 UNIT/10ML (1,000 UNIT/ML) VIAL ONE ×3 (07:49→10:53)
[2024-02-21] MEDS ORDERED: PHENYLEPHRINE HCL 10 MG/ML 1ML VIAL IV ONE (08:44)
[2024-02-21] MEDS ORDERED: EPHEDRINE SULFATE 50 MG/ML AMPULE ONE (08:53)
[2024-02-21] MEDS ORDERED: PROTAMINE SULFATE 10 MG/ML 5 ML VIAL ONE (13:48)
[2024-02-21] MEDS: SUCRALFATE 1 GM/10 ML PO SCH (19:56)
[2024-02-21] MEDS: PANTOPRAZOLE 40 MG TAB DR PO ONE (19:57)
[2024-02-21] MEDS: DRONEDARONE HYDROCHLORIDE 400 MG TABLET PO SCH (20:34)
[2024-02-21] MEDS: AMLODIPINE 5 MG TAB PO SCH (20:34)
[2024-02-21] MEDS: CLONIDINE HCL 0.1 MG TABLET PO SCH (20:34)
[2024-02-21] MEDS: ASPIRIN 81 MG EC TAB PO SCH (20:34)
[2024-02-21] MEDS: APIXABAN 5 MG TABLET PO SCH (20:35)
[2024-02-22 03:08] VITALS: BP 143/70; PULSE 66; RESP 16
[2024-02-22 07:15] VITALS: O2SAT 95
[2024-02-22] MEDS ORDERED: SUCR1TAB2 PO (08:34)
[2024-02-22 08:43] VITALS: BP 154/69; PULSE 75; RESP 16
[2024-02-22] MEDS: TAMSULOSIN HCL 0.4 MG CAP.ER.24H PO SCH (09:53)
[2024-02-22 09:54] VITALS: BP 154/79; PULSE 89
[2024-02-22] MEDS: PANTOPRAZOLE 40 MG TAB DR PO SCH (09:54)
[2024-02-22] MEDS: LISINOPRIL 40 MG TABLET PO SCH (09:54)
== END 2024-02-22 11:10 | disposition home or self-care (01) ==
LOC: DAH 05:57 → DAHIP 05:58 → DAH 05:58 → 2AH 15:50
PROVIDERS: ADMIT Internal Medicine Cardiovascular Disease; ATTEND Internal Medicine Cardiovascular Disease
DX: I48.4 Atypical atrial flutter (principal); I47.19 Other supraventricular tachycardia; I25.10 Atherosclerotic heart disease of native coronary artery without angina pectoris; I73.9 Peripheral vascular disease, unspecified; I10 Essential (primary) hypertension; E78.5 Hyperlipidemia, unspecified; K21.9 Gastro-esophageal reflux disease without esophagitis; M10.9 Gout, unspecified; Z87.891 Personal history of nicotine dependence; Z79.899 Other long term (current) drug therapy
CPT/HCPCS: 80048; 85025; 85610; 85730; 36415; 93005; 93655 ×2; 93656; 93657; 85347 ×13; A4344; C1894 ×3; C1732 ×3; A4649 ×2; C1766; G0378 ×20; J3010 ×2; J3490 ×3; J7030; J2720; J1644 ×5; J2250; J2704; J2405; J2371; A4215; A4223 ×3; A4222; A4221; A4663; A4216; A4606

== ENCOUNTER → 2024-07-09 | Outpatient (CLI) | payer MEDICARE ==
[~2024-07-09] MED LIST changes: +ALLO100T PO; -AMLO-257 PO; +CYAN50009 PO; +DILT180C77 PO; -DRON400T7 PO; -METO-408 PO; +SOTA80TA PO; -VITAMIN B12 PO
== END | disposition home or self-care (01) ==
LOC: SHCH 13:19
PROVIDERS: ATTEND Internal Medicine Cardiovascular Disease
DX: I47.10 Supraventricular tachycardia, unspecified (principal)
CPT/HCPCS: 93306

== ENCOUNTER 2024-07-23 20:55 | Emergency (ER) | payer MEDICARE ==
[~2024-07-23] VITALS: Ht 167.6 cm; Wt 88.5 kg
[2024-07-23 21:00] VITALS: TEMP 98
[2024-07-23] MEDS ORDERED: INSULIN humuLIN R 100 UNIT/ML 3ML IV ONE (21:30)
[2024-07-23] MEDS ORDERED: ALBUTEROL 0.083% 2.5 MG/3 ML INH IH SCH (21:30)
[2024-07-23] MEDS ORDERED: [UNRECOGNIZED DRUG - OTHER] IV ONE (21:30)
[2024-07-23] MEDS ORDERED: CALCIUM GLUC 1GM 1 GM in 0.9%NACL 100ML 100 ML IV ONE (21:30)
[2024-07-23] MEDS ORDERED: DEXTROSE 50%-WATER 25 GM/50 ML VIAL IV ONE (21:30)
[2024-07-23] MEDS ORDERED: LACTATED RINGERS 1000ML 1,000 ML IV ONE (21:30)
--- NOTE | 2024-07-23 21:30 | NUR ---
PER ED MD, NO NEED FOR BLOOD DRAWN OR MEDICATION ADMINISTRATION TO BE DONE OTHER THAN HYDRRALAZINE
[2024-07-23] MEDS: hydrALAZine 20MG/ML VIAL IM ONE (22:05)
--- NOTE | 2024-07-23 22:49 | ERN ---
ED Note History of Present Illness Stated Complaint: C/O HIGH B/P Chief Complaint: Hypertension Time Seen by MD: 21:07 Allergies: Coded Allergies: Sulfa(Sulfonamide Antibiotics) (Unverified Allergy, 11/18/12) Home Meds Reported Medications Sotalol HCl (Sotalol) 80 Mg Tablet, 80 MG PO BID, TAB 07/01/24 Allopurinol (Allopurinol) 100 Mg Tablet, 1 TAB PO DAILY for 30 Days, #30 TAB 0 Refills 05/30/24 Diltiazem HCl (Diltiazem ER) 180 Mg Capsule.er, 180 MG PO DAILY, CAP 05/30/24 Cyanocobalamin (Vitamin B-12) (Vitamin B12) 5,000 Mcg Tab.rapdis, 5000 MCG PO DAILY, TAB 05/30/24 Esomeprazole Magnesium (Esomeprazole Magnesium) 20 Mg Capsule.dr, 20 MG PO DAILY, CAP 01/09/24 Clonidine HCl (Clonidine HCl) 0.1 Mg Tablet, 0.1 MG PO BID, TAB 01/08/24 Multivits-Min/FA/Lycopene/Lut (Centrum Silver Tablet) 1 Each Tablet, 1 EACH PO DAILY, TAB 06/26/22 Aspirin (ASPIRIN 81 MG ECTAB) 81 Mg Ectab, 81 MG PO DAILY, TAB.EC 02/20/22 Apixaban (Eliquis) 5 Mg Tablet, 5 MG PO BID, TAB 02/20/22 Tamsulosin HCl (Tamsulosin HCl) 0.4 Mg Cap.er.24h, 0.4 MG PO DAILY, CAPSULE. 10/04/15 Lisinopril (Lisinopril) 40 Mg Tablet, 40 MG PO DAILY, TAB 10/04/15 Past Medical History Dictation Ag old male past history of high blood pressure, high cholesterol, CAD (s/p cardiac stents), cardiac abrasion. Presents with concerns for high blood pressure. Patient denies syncope, presyncope, productive cough, focal neurological deficits, shortness of breath, headache, changes in vision, chest pain Past Medical History: Hypertension, Other Additional Past Medical Hx: CARDIAC ABLATIONS X 3 Surgical History: Other Surgical History Other: ABLATION X 3 Social History: Negative, Lives with family Review of System Dictation See HPI Initial Vital Sign VS Vital Signs Date Time Temp Pulse Resp B/P (MAP) Pulse Ox O2 Delivery O2 Flow Rate FiO2 07/23/24 21:00 98.1 46 20 219/82 94 Room Air Physical Exam Dictation Chronically ill-appearing, acutely weak appearing, lungs clear to auscultation, symmetric bilateral breath sounds, regular heart rate and rhythm, no murmurs rubs or gallops high and no x4, 5/5 strength extremities x4, cranial nerves intact ED Course ED Course Orders Procedure Category Date Status Time 0.9%Nacl 1000ml (Ns PHA 07/23/24 Complete 1000ml) 21:30 Lactated Ringers PHA 07/23/24 Complete 1000ml (Lactated 21:30 Calcium Gluc 1gm PHA 07/23/24 Complete (Calcium Gluc 1gm 21:30 Dextrose 50%-Water PHA 07/23/24 Complete (Dextrose 50%-Water) 21:30 Insulin Regular, PHA 07/23/24 Complete Human 3ml (Humulin R 21:30 Albuterol 0.083% PHA 07/23/24 Complete 2.5mg/3ml (Proventil 21:30 Hydralazine 20mg Inj PHA 07/23/24 Complete (Apresoline 20mg In 22:00 Current Medications Medications (Trade) Dose Ordered Sig/Marcos Route PRN Reason Start Time Stop Time Status Last Admin Dose Admin Albuterol Sulfate (Proventil 0.083% 2.5mg/3ml) 10 mg ONCE IH 07/23/24 21:30 07/23/24 21:16 DC Calcium Gluconate 1 gm/Sodium Chloride 110 ml @ 110 mls/hr ONCE ONCE IV 07/23/24 21:30 07/23/24 21:16 DC Dextrose (Dextrose 50%-Water) 25 gm ONCE ONCE IV 07/23/24 21:30 07/23/24 21:16 DC Hydralazine HCl (APRESOLine 20MG INJ) 20 mg ONCE ONCE IM 07/23/24 22:00 07/23/24 22:01 DC 07/23/24 22:05 Insulin Human Regular (humuLIN R 100 UNIT/ML 3ML) 5 unit ONCE ONCE IV 07/23/24 21:30 07/23/24 21:16 DC Lactated Ringer's 1,000 ml @ 0 mls/hr ONCE ONCE IV 07/23/24 21:30 07/23/24 21:16 DC Sodium Chloride 2,655 ml @ 885 mls/hr ONCE ONCE IV 07/23/24 21:30 07/23/24 21:16 DC Vital Signs Date Time Temp Pulse Resp B/P (MAP) Pulse Ox O2 Delivery O2 Flow Rate FiO2 07/23/24 21:00 98.1 46 20 219/82 94 Room Air Medical Decision Making MDM dDX: STEMI versus NSTEMI versus CHF versus hypertensiveCrisis versus asymptomatic hypertension Patient presents with asymptomatic hypertension. Patient states he has been out in blood pressure issues for several weeks and became concerned tonight because his blood pressure was alarmingly high over 200 systolic. Discussed the merits of ED workup wit patient in setting of asymptomatic hypertension. May joint decision with the patient to control blood pressure and follow up with primary care physician. Upon re-evaluation, patient's blood pressures improved. Discussed ED workup with patient. Return precautions given. Invited and answered all questions prior to discharge. 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 DX & DISP Disposition: Discharge Departure Impression: Primary Impression: Asymptomatic hypertensive urgency Condition: Stable Additional Instructions: Please return to emergency department immediately if develop changes in vision, headache, sudden loss of consciousness, she was sudden weak or lethargic, shortness of breath, chest pain, abdominal pain, nausea, vomiting, sweating, weakness in upper and lower extremities, difficulty walking. Please follow up with melt down furnace operator the next available appointment. Referrals: PATT MONTE MD (PCP) NICHOLE MANRIQUE DO Time of Disposition: 22:49 REENA SOLITARIO DO Jul 23, 2024 22:49
[2024-07-23 22:56] VITALS: BP 166/79; PULSE 52; RESP 20; O2SAT 97
== END 2024-07-23 23:15 | disposition home or self-care (01) ==
LOC: EDH 20:55
DX: I16.0 Hypertensive urgency (principal); E78.00 Pure hypercholesterolemia, unspecified; I10 Essential (primary) hypertension; I25.10 Atherosclerotic heart disease of native coronary artery without angina pectoris; Z79.01 Long term (current) use of anticoagulants; Z79.82 Long term (current) use of aspirin; Z79.899 Other long term (current) drug therapy; Z88.2 Allergy status to sulfonamides; Z95.5 Presence of coronary angioplasty implant and graft
CPT/HCPCS: 99283; 96372; J0360; J0612; J7070

== ENCOUNTER → 2024-08-26 | Outpatient (CLI) | payer MEDICARE ==
[2024-08-26] MEDS: REGADENOSON 0.4 MG/5 ML PF SYG IVP ONE (11:18)
--- NOTE | 2024-08-27 07:26 | HMCSR ---
APPROVED REPORT Height: 5 ft 6in Weight: 185 lbs TEST INDICATIONS I47 VENTRICULAR TACHYCARDIA The imaging protocol used to acquire images was Rest Tc-99m/stress Tc-99m 1 day Consent: The procedure was explained and understood by the patient. Informerd consent was witnessed Terry RUSH RN First, low dose rest was performed then high dose stress. RESTING DATA: The resting ekg shows: Atrial Fibrillation Rest SPECT myocardial perfusion imaging was performed in supine position 71 minutes following the int ravenous injection of 11.0 mCi of Tc-99 Sestamibi. Time of rest injection: 09:00: Date: 08/26/2024 Time of rest imagin:11: Date: 08/26/2024 PHARMACOLOGIC STRESS: Pharmacologic stress test was performed by injecting regadenoson 0.4 mg IV push followed by the intra venous injection of 32.0 mCi of Tc-99 Sestamibi. Time of stress injection: 10:40: Date: 08/26/2024 Time of stress imagin:04: Date: 08/26/2024 Heart Rate at time of stress injection: 77 bpm. Gated Stress SPECT was performed 84 minutes after stress injection. The images were gated to evaluate regional wall motion and calculate left ventricular ejection fracti on. STRESS DETAILS Reason for Termination: Infusion complete Stress Symptoms: No chest pain or symptoms Max HR Achieved: 92 bpm % of APMHR Achieved: 67 Max Blood Pressure: 155/74 mmHg Stress ECG: Atrial Fibrillation Study quality was good. Lung uptake was Normal. Artifact: increased GI uptake LEFT VENTRICLE Size: The left ventricular size is normal. Systolic Function:The left ventricular systolic function is borderline. Wall Motion: Cannot assess regional wall motion abnormalities. The left ventricular ejection fraction was calculated to be 48%.TID = . LV PERFUSION The rest and stress images show normal perfusion. IMPRESSION Normal pharmacologic nuclear stress test. Global LV Function: Normal Stress ECG Summary: Nondiagnostic LV Perfusion Summary: Normal Conclusion Normal pharmacologic nuclear stress test. Global LV Function: Normal Stress ECG Summary: Nondiagnostic LV Perfusion Summary: Normal
== END | disposition home or self-care (01) ==
LOC: SHCH 08:38
PROVIDERS: ATTEND Internal Medicine Cardiovascular Disease
DX: I48.0 Paroxysmal atrial fibrillation (principal); I47.20 Ventricular tachycardia, unspecified; I10 Essential (primary) hypertension; I49.3 Ventricular premature depolarization; I47.19 Other supraventricular tachycardia
CPT/HCPCS: 78452; 93017; J2785; A9500 ×2

== ENCOUNTER 2024-11-13 07:00 | Day surgery (SDC) | payer MEDICARE ==
[2024-11-10 11:30] VITALS: BP 129/68; PULSE 79; RESP 16; TEMP 97.7
[2024-11-10 11:36] LABS: BASOPHILS # (AUTO) 0.08 K/uL (0.00-0.20); BASOPHILS % (AUTO) 0.9 % (0.0-5.0); EOSINOPHILS # (AUTO) 0.93 K/uL (0.00-0.70); HEMATOCRIT 44.2 % (42-54); IMMATURE GRANULOCYTE ABSOLUTE 0.07 K/uL (0-1); LYMPHOCYTES % (AUTO) 23.2 % (21.0-51.0); MEAN CORPUSCULAR HEMOGLOBIN 27.9 pg (27.0-33.0); MEAN CORPUSCULAR VOLUME 84.5 fL (79-99); MONOCYTES # (AUTO) 0.7 K/uL (0.1-1.0); MONOCYTES % (AUTO) 8.2 % (3.0-13.0); NEUTROPHILS # (AUTO) 4.7 K/uL (1.8-7.7); NEUTROPHILS % (AUTO) 55.9 % (40.0-77.0); PLATELET COUNT (AUTO) 217 K/uL (130-400); RED BLOOD CELL COUNT(AUTO) 5.23 MIL/uL (4.50-6.20); RED CELL DISTRIBUTION WIDTH 19.8 % (11.0-15.5); WHITE BLOOD COUNT (AUTO) 8.5 K/uL (4.8-10.8)
[2024-11-10 11:45] LABS: INR 1.07 (0.85-1.15); PROTHROMBIN TIME 11.3 SEC (9.6-11.6)
[2024-11-10 11:46] LABS: CREATININE 1.1 mg/dL (0.5-1.3); POTASSIUM 4.7 mmol/L (3.5-5.1)
[2024-11-10 11:47] LABS: PARTIAL THROMBOPLASTIN TIME 30.6 SEC (26.3-35.5)
[2024-11-10 13:00] LABS: B-TYPE NATRIURETIC PEPTIDE 62 pg/mL (0-100)
[~2024-11-13] VITALS: Ht 167.6 cm; Wt 85.4 kg
[~2024-11-13 07:00] MED LIST changes: +AMLO-257 PO; -DILT180C77 PO; +DRON400T7 PO; +METO50TA18 PO; -SOTA80TA PO; +SPIR25TA6 PO
[2024-11-13 07:15] VITALS: BP 147/73; PULSE 95; RESP 18; TEMP 97.2
--- NOTE | 2024-11-13 07:40 | EKG ---
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: [id number] : 1940 Requested By: Lydia SILVERMAN Order Number: [id number] Reading MD: Ana Mandel Measurements Intervals [place] Rate: 94 P: 0 HI: 0 QRS: 29 QRSD: 94 T: 0 QT: 362 QTc: 456 Interpretive Statements Atrial flutter Borderline T abnormalities, diffuse leads Compared to ECG 07/01/2024 13:37:03 T-wave abnormality now present Sinus bradycardia no longer present Atrial premature complex(es) no longer present First degree AV block no longer present Left anterior fascicular block no longer present Right bundle-branch block no longer present Electronically Signed On 11-14-2024 09:33:32 CDT by Ana Mandel Please click the below link to view image of tracing.
[2024-11-13] MEDS ORDERED: proPOFol 10 MG/ML 20ML VIAL IV ONE (08:15)
[2024-11-13] MEDS ORDERED: phenylEPHRINE HCL 10 MG/ML 1ML VIAL IV ONE (08:16)
[2024-11-13] MEDS ORDERED: ATROPINE 1MG SYG IVP ONE (08:17)
[2024-11-13] MEDS ORDERED: SUCCINYLCHOLINE CHLORIDE 20 MG/ML 10 ML VIAL ONE (08:17)
[2024-11-13 09:15] VITALS: BP 114/54; PULSE 39; RESP 15; TEMP 97.4
--- NOTE | 2024-11-13 09:18 | EKG ---
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
[2024-11-13 09:25] VITALS: BP 119/54; PULSE 38; RESP 15
[2024-11-13 09:35] VITALS: BP 122/52; PULSE 41; RESP 16
[2024-11-13 09:45] VITALS: BP 125/53; PULSE 39; RESP 14
[2024-11-13 09:55] VITALS: BP 117/55; PULSE 38; RESP 15
[2024-11-13] MEDS: 0.9%NACL 1000ML 1,000 ML IV SCH (10:56)
--- NOTE | 2024-11-13 12:55 | PRN ---
Procedure Note Date of procedure: 11/13/2024 Diagnosis: Persistent left atrial tachycardia Procedure: Cardioversion Physician: Vel Valle MD The patient was brought to the day patient area in a fasting state. Anesthesia was provided by the anesthesia service. Cardioversion was performed with a synchronized shock at 120 joules resulting in sinus rhythm. The patient tolerated the procedure well. Final diagnosis: Persistent left atrial tachycardia, status post successful cardioversion Disposition: The patient will be discharged later today and will follow up with me in the office in approximately two weeks. VEL AVLLE MD Nov 13, 2024 12:54
== END 2024-11-13 10:05 | disposition home or self-care (01) ==
LOC: DAH 07:00
PROVIDERS: ATTEND Internal Medicine Cardiovascular Disease
DX: I47.19 Other supraventricular tachycardia (principal); I25.10 Atherosclerotic heart disease of native coronary artery without angina pectoris; I11.9 Hypertensive heart disease without heart failure; I73.9 Peripheral vascular disease, unspecified; K21.9 Gastro-esophageal reflux disease without esophagitis; E78.5 Hyperlipidemia, unspecified; M10.9 Gout, unspecified; Z98.890 Other specified postprocedural states; Z79.01 Long term (current) use of anticoagulants; Z79.899 Other long term (current) drug therapy
CPT/HCPCS: 80048; 83880; 85025; 85610; 85730; 36415; 92960; 93005 ×2; J0330; J7030; J0461; J2704; J2371; A4620; A4215; A4222; A4221; A4663; A4216; A4606; A4223 ×3; J3490